=== PATIENT | female | born 1960 | race Caucasian/White ===

== ENCOUNTER 2017-12-02 11:40 | Inpatient (IN) | payer OTHER ==
[~2017-12-02] VITALS: Ht 170.2 cm; Wt 82.1 kg
[2017-12-02] VITALS (7 sets, daily range): BP systolic 135–202; BP diastolic 79–124
--- NOTE | ~2017-12-02 | EKG ---
[place] [address] [facility] [place] [address] ELECTROCARDIOGRAM REPORT Name: ANALY BLACK Room #: 212-P [facility]#: [id number] Admission: 12/02/17 Attend Phys: Evelyn Rebolledo Discharge: 12/03/17 Date of : 64 Report #: [id number] THIS REPORT FOR: //name// [facility] ED Test Date: 2017-12-02 Test Time: 11:38:06 Pat Name: ANALY BLACK Department: Room: [facility] Gender: F Supplier Quality: [place] : 1960 Requested By: Lucas Crowe Order Number: [id number] MD: Andrey Frazier Measurements Intervals [place] Rate: 112 P: 69 WI: 154 QRS: 22 QRSD: 77 T: 31 QT: 319 QTc: 436 Interpretive Statements Sinus tachycardia Atrial premature complex Low voltage, precordial leads RSR' in V1 or V2, probably normal variant No previous ECG available for comparison Electronically Signed On 12-04-2017 13:37:17 CDT by Andrey Frazier [email or web address] <ELECTRONICALLY SIGNED> By: Andrey Frazier MD, [facility] 12/04/17 [id number] [id number] Andrey Frazier MD, [facility] /EPI
[2017-12-02] MEDS ORDERED: CELEBREX 200 M200 M1 PO (12:02)
[2017-12-02] MEDS ORDERED: LEVOTHYROXINE100 MC1 PO (12:02)
[2017-12-02] MEDS ORDERED: FISH OIL 1,001000 M2 PO (12:02)
[2017-12-02] MEDS ORDERED: GLUCOSAMINE PO (12:03)
[2017-12-02] MEDS ORDERED: TURMERIC PO (12:03)
[2017-12-02] MEDS ORDERED: VITAMIN D2000 UNIT PO (12:03)
[2017-12-02 12:16] LABS: ABSOLUTE NEUTROPHILS 5.1 thou/uL (1.4-8.2); BASOPHILS 0.8 % (0.0-2.0); EOSINOPHILS 3.3 % (0.0-3.0); HEMOGLOBIN 15.3 gm/dL (12.0-15.0); LYMPHOCYTES 31.6 % (24.0-44.0); MCH 31.9 pg (26.0-34.0); MCHC 34.8 g/dL (28.0-37.0); MCV 91.8 fL (80.0-100.0); MONOCYTES 7.8 % (1.0-8.0); PLATELET COUNT 224 thou/uL (150-400); POLYS 56.5 % (36.0-66.0); WBC 9.1 thou/uL (4.0-11.0)
[2017-12-02 12:20] LABS: ANION GAP 10 mmol/L (7-16); BUN 18 mg/dL (7-18); CALCIUM 9.6 mg/dL (8.5-10.1); CHLORIDE 100 mmol/L (98-107); CO2 27 mmol/L (21-32); CREATININE 0.8 mg/dL (0.6-1.0); GLUCOSE 113 mg/dL (74-106); POTASSIUM 3.8 mmol/L (3.5-5.1)
[2017-12-02 12:21] LABS: SODIUM 137 mmol/L (136-145)
[2017-12-02 12:29] LABS: ALBUMIN 3.8 g/dL (3.4-5.0); SGOT 31 U/L (15-37); SGPT 31 U/L (30-65); TOTAL BILIRUBIN 0.5 mg/dL (<0.1-1.0); TROPONIN-I < 0.04 ng/mL (<0.06)
[2017-12-02 12:31] LABS: APTT 27.6 Seconds (24.5-32.8); PROTIME 9.9 Seconds (9.3-11.4)
[2017-12-03 04:18] LABS: ANION GAP 10 mmol/L (7-16); BUN 15 mg/dL (7-18); CHLORIDE 105 mmol/L (98-107); CO2 24 mmol/L (21-32); CREATININE 0.7 mg/dL (0.6-1.0); GLUCOSE 106 mg/dL (74-106); PHOSPHORUS 3.3 mg/dL (2.5-4.9); POTASSIUM 3.3 mmol/L (3.5-5.1); SODIUM 139 mmol/L (136-145); TROPONIN-I < 0.04 ng/mL (<0.06)
[2017-12-03 04:19] LABS: CHOLESTEROL 202 mg/dL (<200); HDL CHOLESTEROL 89 mg/dL (>40); LDL CHOLESTEROL 94 mg/dL (<100); TC:HDL 2.3 Ratio (Not establshd); TRIGLYCERIDE 96 mg/dL (<150); VLDL 19 mg/dL (<40)
[2017-12-03 04:29] LABS: SERUM ASSESSMENT Clear
[2017-12-03 04:48] VITALS: BP 139/84
[2017-12-03 07:25] VITALS: BP 130/84
[2017-12-03] MEDS ORDERED: PANTOPRAZOLE SO40 M1 PO (08:32)
[2017-12-03] MEDS ORDERED: NORVASC10 MG PO (08:57)
[2017-12-03 09:11] VITALS: BP 130/84
== END 2017-12-03 09:54 | disposition home or self-care (01) | DRG 392 ==
LOC: ER 11:40 → 2N 13:15 → EROBS 13:15 → 2N 14:48
PROVIDERS: Emergency Medicine; Hospitalist
DX: K21.9 Gastro-esophageal reflux disease without esophagitis (principal); I16.0 Hypertensive urgency; M19.90 Unspecified osteoarthritis, unspecified site; E03.9 Hypothyroidism, unspecified; Z82.49 Family history of ischemic heart disease and other diseases of the circulatory system; Z87.891 Personal history of nicotine dependence
CPT/HCPCS: 10081